=== PATIENT | female | born 1975 | race Caucasian/White ===

== ENCOUNTER → 2016-07-14 | Outpatient (CLI) | payer BC ==
[2016-07-14 20:22] LABS: ALT 31 U/L (9-52); AST 25 U/L (14-36); Alkaline Phosphatase 50 U/L (38-126); Anion Gap 13 mmol/L; Blood Urea Nitrogen 23 mg/dL (7-17); Calcium 10.2 mg/dL (8.4-10.2); Carbon Dioxide 27 mmol/L (22-30); Chloride 104 mmol/L (98-107); Glucose 80 mg/dL (74-99); Non-African American GFR(MDRD) >60 (>60 ml/min/1.73 sqM); Potassium 4.2 mmol/L (3.5-5.1); Sodium 144 mmol/L (137-145); Total Bilirubin 0.7 mg/dL (0.2-1.3); Total Protein 7.6 g/dL (6.3-8.2)
== END | disposition home or self-care (01) ==
LOC: MMGSC 11:20
PROVIDERS: ATTEND Family Medicine
DX: R00.2 Palpitations (principal)
CPT/HCPCS: 36415; 80053; 83735; 84439; 84443

== ENCOUNTER 2023-01-10 07:45 | Day surgery (SDC) | payer BC, MEDICAID ==
[2023-01-04 12:08] VITALS: BMI 22.3
[~2023-01-10 07:45] MED LIST: LACTATED RINGERS 1,000 ML IV SCH; LIDOCAINE 1% (10MG/ML) FOR IV START INTRADERMA PRN
[2023-01-10] MEDS ORDERED: LIDOCAINE 1% INJ 10MG/ML (20 ML MDV) ONE (08:22)
[2023-01-10] MEDS ORDERED: PROPOFOL 10 MG/ML 20 ML VIAL IV ONE (08:22)
[2023-01-10 08:26] VITALS: TEMP 97.2
--- NOTE | 2023-01-10 08:29 | P.GSHP ---
History of Present Illness H&P Date: 01/10/23 Chief Complaint: GERD, screening 47 row female here for upper and lower endoscopy. Patient was having upper abdominal pain recently. She went to the ER. Was told she had inflammation in the upper abdomen. Apparently was told it might be diverticulitis as he was advised to have a colonoscopy. She does have issues with constipation at times. No rectal bleeding. Grandparent with colon cancer. Past Medical History Past Medical History: Neurologic Disorder Additional Past Medical History / Comment(s): migraines. CHANGE IN BOWEL HABITS AND ABD. PAIN History of Any Multi-Drug Resistant Organisms: None Reported Past Surgical History: Hysterectomy Past Anesthesia/Blood Transfusion Reactions: No Reported Reaction Smoking Status: Never smoker - Past Family History Father Family Medical History: Cancer Mother Family Medical History: Blood Disorder Additional Family Medical History / Comment(s): FACTOR V LEIDEN Medications and Allergies Home Medications Medication Instructions Recorded Confirmed Type Perphenazine [Trilafon] 2 mg PO TID 01/04/23 01/04/23 History QUEtiapine [SEROquel] 25 mg PO BID 01/04/23 01/04/23 History SUMAtriptan succinate [Imitrex] 100 mg PO DIRECTED PRN 01/04/23 01/04/23 History lamoTRIgine [LaMICtal] 150 mg PO BID 01/04/23 01/04/23 History Allergies Allergy/AdvReac Type Severity Reaction Status Date / Time morphine Allergy Nausea & Verified 01/04/23 11:41 Vomiting metoclopramide [From Reglan] AdvReac SEVERE Verified 01/04/23 11:41 SHAKING Surgical - Exam Vital Signs Temp Pulse Resp BP Pulse Ox 97.2 F L 106 H 18 124/80 100 01/10/23 08:12 01/10/23 08:12 01/10/23 08:12 01/10/23 08:12 01/10/23 08:12 Physical exam: General: Well-developed, well-nourished HEENT: Normocephalic, sclerae nonicteric Abdomen: Nontender, nondistended Extremities: No edema Neuro: Alert and oriented Assessment and Plan (1) Colon cancer screening Narrative/Plan: Will proceed with upper and lower endoscopy Current Visit: Yes Status: Acute Code(s): Z12.11 - ENCOUNTER FOR SCREENING FOR MALIGNANT NEOPLASM OF COLON SNOMED Code(s): 783663614
--- NOTE | 2023-01-10 08:45 | P.PCN ---
Date of Procedure: 01/10/23 Procedure(s) Performed: PREOPERATIVE DIAGNOSIS: Abdominal pain, GERD, screening POSTOPERATIVE DIAGNOSIS: Mild gastritis, small hiatal hernia, normal colon PROCEDURE: 1. EGD with biopsy 2. Colonoscopy ANESTHESIA: MAC SURGEON: Ronald Gage M.D. SPECIMENS: Antrum ENDOSCOPIC PROCEDURE: The patient was on the endoscopy table in the left decubitus position. The Olympus gastroscope was inserted into the oropharynx and passed under direct visualization to the region of the third portion of the duodenum. From that point the scope was slowly withdrawn inspecting all surfaces carefully. There were no neoplastic inflammatory or polypoid lesions throughout the duodenum. The pylorus was widely patent. The stomach was carefully inspected. There was mild gastritis present. A biopsy of the antrum took place to rule out H. pylori. Retroflexion revealed a small 1 cm hiatal hernia. The esophagus was then carefully examined. There were no neoplastic inflammatory or polypoid lesions throughout the visualized esophagus. The patient was kept on the endoscopy table in the left decubitus position. The Olympus colonoscope was inserted into the anus and passed under direct visualization to the base of the cecum. The appendiceal orifice was visualized. From that point the scope was slowly withdrawn inspecting all surfaces carefully. There were no neoplastic inflammatory or polypoid lesions throughout the cecum, ascending, transverse, descending, sigmoid and rectum. There was no visible diverticulosis noted. Digital rectal examination was normal. The patient was taken to the recovery room in stable condition per anesthesia guidelines. RECOMMENDATIONS: Resume diet. As needed antiacid therapy. Repeat colonoscopy in 7-10 years.
[2023-01-10 08:58] VITALS: RESP 16
[2023-01-10 09:14] VITALS: BP 95/57; PULSE 78
== END 2023-01-10 09:27 | disposition home or self-care (01) ==
LOC: ORWHC2ENDO 07:45
PROVIDERS: ATTEND Surgery
DX: Z12.11 Encounter for screening for malignant neoplasm of colon (principal); K29.50 Unspecified chronic gastritis without bleeding; K21.9 Gastro-esophageal reflux disease without esophagitis; K44.9 Diaphragmatic hernia without obstruction or gangrene; K57.30 Diverticulosis of large intestine without perforation or abscess without bleeding; Z80.0 Family history of malignant neoplasm of digestive organs; Z88.8 Allergy status to other drugs, medicaments and biological substances; Z88.5 Allergy status to narcotic agent
CPT/HCPCS: 88305; 88342; 45378; 43239; J2001; J2704